=== PATIENT | male | born 1970 | race Caucasian/White ===

== ENCOUNTER 2022-09-24 12:55 | Inpatient (IN) | payer MEDICARE, SELFPAY ==
[2022-09-24] MEDS ORDERED: Morphine 4 MG/ML VIAL ONE (13:36)
[2022-09-24] MEDS ORDERED: Cefepime 2 GM VIAL ONE ×2 (13:36→13:37)
[2022-09-24] MEDS ORDERED: Lidocaine 1% PF 5 ML VIAL ONE (13:39)
[2022-09-24] MEDS ORDERED: Vancomycin 1 GM/200 ML (FROZEN) BAG ONE (13:40)
[2022-09-24 13:44] LABS: #Eosinphils 0.2 thou/uL (0.0-0.7); #Lymphocytes 1.4 thou/uL (1.20-3.40); #Neutrophils 9.3 thou/uL (1.40-6.50); %Eosinophils 1.9 % (0.0-10.0); %Lymphocytes 11.7 % (21.0-51.0); %Monocytes 8.3 % (0.0-10.0); Hemoglobin 15.3 g/dL (14.0-18.0); Mean Corpuscular HGB CONC 33.5 g/dL (32.0-36.0); Mean Corpuscular Hemoglobin 33.7 pg (27.0-31.0); Mean Platelet Volume 6.3 fL (7.4-10.4); Platelet Count 260 10x3/uL (130-400); RBC Distribution Width 11.8 % (11.5-14.5); Red Blood Cell (RBC) Count 4.54 mill/uL (4.70-6.10); White Blood Cell (WBC) Count 11.9 10x3/uL (4.8-10.8)
[2022-09-24 14:07] LABS: ALT (SGPT) 16 U/L (8-55); AST (SGOT) 16 U/L (5-34); Albumin 3.6 g/dL (3.5-5.0); Alkaline Phosphatase 76 U/L (40-110); Anion Gap 10 mmol/L (10-20); BUN (Urea Nitrogen) 12 mg/dL (8.4-25.7); Bilirubin, Total 1.1 mg/dL (0.2-1.2); CRP (Inflammatory) 6.53 mg/dL (= or < 0.5); Calc. Creatinine Clearance 0 mL/min (70-130); Calcium 8.3 mg/dL (7.8-10.44); Carbon Dioxide 21 mmol/L (22-29); Chloride 109 mmol/L (98-107); Estimated GFR 112; Globulin 3.3 g/dL (2.4-3.5); Glucose 88 mg/dL (70-105); Potassium 3.8 mmol/L (3.5-5.1); Protein, Total 6.9 g/dL (6.0-8.3); Sodium 136 mmol/L (136-145)
[2022-09-24] MEDS ORDERED: LORazepam 2 MG/ML SYR.(CARPUJECT) ONE (14:07)
[2022-09-24 16:34] LABS: SARS-CoV-2 NAA Rapid Test Not Detected (NotDetected)
[2022-09-24] MEDS ORDERED: Ondansetron ODT 4 MG TAB PO PRN (16:54)
[2022-09-24] MEDS ORDERED: Morphine 4 MG/ML VIAL SLOW IVP PRN (16:54)
[2022-09-24] MEDS ORDERED: hydrALAZINE 20 MG/ML VIAL SLOW IVP PRN (16:54)
[2022-09-24] MEDS ORDERED: Ondansetron PF 4 MG/2 ML Vial IVP PRN (16:54)
[2022-09-24] MEDS ORDERED: Piperacillin/Tazobactam 3.375 GM in Sodium Chloride 0.9% 100 ML IVPB SCH (17:30)
[2022-09-24] MEDS ORDERED: Piperacillin/Tazobactam 4.5 GM in Sodium Chloride 0.9% 100 ML IVPB SCH (18:00)
[2022-09-24] MEDS ORDERED: Piperacillin/Tazobactam 3.375 GM VIAL ONE ×2 (18:15→23:23)
[2022-09-24] MEDS: Sodium Chloride 0.9% 1,000 ML IV SCH (18:20)
[2022-09-24 20:27] VITALS: BMI 22.1
[2022-09-24] MEDS ORDERED: Famotidine/PF 20 mg/2ml Vial ONE (21:27)
[2022-09-24] MEDS: Famotidine/PF 20 mg/2ml Vial SLOW IVP SCH (21:31)
[2022-09-24] MEDS: Piperacillin/Tazobactam 3.375 GM in Sodium Chloride 0.9% 100 ML IVPB SCH (23:30)
[2022-09-24] MEDS: VANCOMYCIN 1.25 GM/250 ML BAG 1.25 GM in Premix Bag 1 BAG IVPB SCH (23:57)
[2022-09-25] MEDS: VANCOMYCIN 1.25 GM/250 ML BAG 1.25 GM in Premix Bag 1 BAG IVPB SCH ×3 (05:19→17:51)
[2022-09-25] MEDS: Piperacillin/Tazobactam 3.375 GM in Sodium Chloride 0.9% 100 ML IVPB SCH ×3 (05:19→22:33)
[2022-09-25 06:14] LABS: #Eosinphils 0.3 thou/uL (0.0-0.7); #Lymphocytes 1.1 thou/uL (1.20-3.40); #Monocytes 0.8 thou/uL (0.11-0.59); #Neutrophils 8.4 thou/uL (1.40-6.50); %Basophils 0.1 % (0.0-1.0); %Eosinophils 3.2 % (0.0-10.0); %Lymphocytes 10.1 % (21.0-51.0); %Monocytes 7.8 % (0.0-10.0); %Neutrophils 78.8 % (42.0-75.0); Hemoglobin 14.9 g/dL (14.0-18.0); Mean Corpuscular HGB CONC 33.3 g/dL (32.0-36.0); Mean Corpuscular Hemoglobin 34.1 pg (27.0-31.0); Mean Platelet Volume 6.3 fL (7.4-10.4); Platelet Count 234 10x3/uL (130-400); RBC Distribution Width 11.8 % (11.5-14.5); Red Blood Cell (RBC) Count 4.38 mill/uL (4.70-6.10); White Blood Cell (WBC) Count 10.7 10x3/uL (4.8-10.8)
[2022-09-25] MEDS ORDERED: Neomycin-Polymyxin 1 ML AMP ONE (06:18)
[2022-09-25] MEDS ORDERED: Bacitracin Zinc Ointment 30 gm TUBE ONE (06:18)
[2022-09-25] MEDS ORDERED: Bupivacaine PF 0.5% 30 ML VIAL ONE (06:18)
[2022-09-25 06:40] LABS: ALT (SGPT) 11 U/L (8-55); AST (SGOT) 14 U/L (5-34); Albumin 3.4 g/dL (3.5-5.0); Alkaline Phosphatase 80 U/L (40-110); Anion Gap 11 mmol/L (10-20); BUN (Urea Nitrogen) 8 mg/dL (8.4-25.7); Bilirubin, Total 1.5 mg/dL (0.2-1.2); Calc. Creatinine Clearance 117 mL/min (70-130); Calcium 8.2 mg/dL (7.8-10.44); Carbon Dioxide 21 mmol/L (22-29); Chloride 108 mmol/L (98-107); Estimated GFR 109; Glucose 74 mg/dL (70-105); Potassium 3.8 mmol/L (3.5-5.1); Protein, Total 6.4 g/dL (6.0-8.3); Sodium 136 mmol/L (136-145)
[2022-09-25] MEDS ORDERED: Dexamethasone 20 MG/5 ML VIAL ONE (06:54)
[2022-09-25] MEDS ORDERED: Ondansetron PF 4 MG/2 ML Vial ONE (06:54)
[2022-09-25] MEDS ORDERED: Lidocaine 1% PF 5 ML VIAL ONE (06:54)
[2022-09-25] MEDS ORDERED: PROPOFOL 200 MG/20 ML VIAL ONE (06:54)
[2022-09-25] MEDS ORDERED: Ketorolac Tromethamine 30 MG/ML VIAL ONE (06:54)
[2022-09-25] MEDS ORDERED: Midazolam HCl 2 mg/2 ml Vial ONE (07:01)
[2022-09-25] MEDS ORDERED: Fentanyl 100 MCG/2 ML VIAL ONE (08:28)
[2022-09-25] MEDS ORDERED: Non-Formulary Medication 1 EACH PO PRN (08:37)
[2022-09-25] MEDS ORDERED: Ondansetron HCl/PF 4 MG/2 ML Vial IVP PRN (08:45)
[2022-09-25] MEDS ORDERED: Promethazine HCl 25 MG/ML VIAL IM/IV PRN (08:45)
[2022-09-25] MEDS: Famotidine/PF 20 mg/2ml Vial SLOW IVP SCH ×2 (11:06→19:47)
[2022-09-25 16:03] LABS: Vancomycin, Trough 7.9 ug/mL
[2022-09-25] MEDS: Sodium Chloride 0.9% 1,000 ML IV SCH ×2 (17:56)
[2022-09-26] MEDS: Acetaminophen 500 MG TAB PO PRN ×2 (00:33→05:58)
[2022-09-26] MEDS: VANCOMYCIN 1.25 GM/250 ML BAG 1.25 GM in Premix Bag 1 BAG IVPB SCH ×3 (00:35→17:53)
[2022-09-26] MEDS: Piperacillin/Tazobactam 3.375 GM in Sodium Chloride 0.9% 100 ML IVPB SCH ×2 (05:51→14:56)
[2022-09-26 06:39] LABS: #Eosinphils 0.1 thou/uL (0.0-0.7); #Lymphocytes 1.4 thou/uL (1.20-3.40); #Monocytes 0.8 thou/uL (0.11-0.59); #Neutrophils 9.1 thou/uL (1.40-6.50); %Basophils 0.1 % (0.0-1.0); %Eosinophils 0.7 % (0.0-10.0); %Lymphocytes 12.2 % (21.0-51.0); %Monocytes 6.9 % (0.0-10.0); Hemoglobin 14.2 g/dL (14.0-18.0); Mean Corpuscular Hemoglobin 35.5 pg (27.0-31.0); Mean Platelet Volume 6.4 fL (7.4-10.4); Platelet Count 252 10x3/uL (130-400); RBC Distribution Width 11.6 % (11.5-14.5); White Blood Cell (WBC) Count 11.3 10x3/uL (4.8-10.8)
[2022-09-26 07:06] LABS: ALT (SGPT) 10 U/L (8-55); AST (SGOT) 12 U/L (5-34); Albumin 3.3 g/dL (3.5-5.0); Alkaline Phosphatase 80 U/L (40-110); Anion Gap 9 mmol/L (10-20); BUN (Urea Nitrogen) 8 mg/dL (8.4-25.7); Bilirubin, Total 0.5 mg/dL (0.2-1.2); Calc. Creatinine Clearance 116 mL/min (70-130); Carbon Dioxide 23 mmol/L (22-29); Chloride 110 mmol/L (98-107); Estimated GFR 108; Globulin 2.9 g/dL (2.4-3.5); Glucose 98 mg/dL (70-105); Magnesium 2.1 mg/dL (1.6-2.6); Phosphorus 2.5 mg/dL (2.3-4.7); Potassium 3.6 mmol/L (3.5-5.1); Protein, Total 6.2 g/dL (6.0-8.3); Sodium 138 mmol/L (136-145)
[2022-09-26] MEDS ORDERED: Meperidine HCl/PF 25 MG/ML VIAL IM PRN (08:13)
[2022-09-26] MEDS ORDERED: Promethazine HCl 25 MG/ML VIAL IM PRN (08:14)
[2022-09-26] MEDS: Famotidine/PF 20 mg/2ml Vial SLOW IVP SCH ×2 (08:49→20:04)
[2022-09-26] MEDS: Sodium Chloride 0.9% 1,000 ML IV SCH (08:49)
[2022-09-26] MEDS: Morphine 4 MG/ML VIAL SLOW IVP PRN ×2 (11:18→20:04)
[2022-09-26 17:21] LABS: Vancomycin, Trough 14.7 ug/mL
[2022-09-27] MEDS: Sodium Chloride 0.9% 1,000 ML IV SCH ×2 (00:57→12:20)
[2022-09-27] MEDS: VANCOMYCIN 1.25 GM/250 ML BAG 1.25 GM in Premix Bag 1 BAG IVPB SCH ×2 (00:58→08:43)
[2022-09-27 06:03] LABS: #Eosinphils 0.3 thou/uL (0.0-0.7); #Monocytes 0.5 thou/uL (0.11-0.59); #Neutrophils 4.4 thou/uL (1.40-6.50); %Basophils 0.4 % (0.0-1.0); %Eosinophils 3.9 % (0.0-10.0); %Lymphocytes 27.7 % (21.0-51.0); %Monocytes 7.4 % (0.0-10.0); %Neutrophils 60.5 % (42.0-75.0); Hemoglobin 14.3 g/dL (14.0-18.0); Mean Corpuscular Hemoglobin 34.3 pg (27.0-31.0); Mean Platelet Volume 6.3 fL (7.4-10.4); Platelet Count 252 10x3/uL (130-400); RBC Distribution Width 11.7 % (11.5-14.5); Red Blood Cell (RBC) Count 4.18 mill/uL (4.70-6.10); White Blood Cell (WBC) Count 7.3 10x3/uL (4.8-10.8)
[2022-09-27 06:24] LABS: Anion Gap 11 mmol/L (10-20); BUN (Urea Nitrogen) 9 mg/dL (8.4-25.7); Calc. Creatinine Clearance 116 mL/min (70-130); Calcium 8.1 mg/dL (7.8-10.44); Carbon Dioxide 24 mmol/L (22-29); Chloride 108 mmol/L (98-107); Estimated GFR 108; Glucose 83 mg/dL (70-105); Potassium 3.8 mmol/L (3.5-5.1); Sodium 139 mmol/L (136-145)
[2022-09-27] MEDS: Famotidine/PF 20 mg/2ml Vial SLOW IVP SCH ×2 (08:43→20:16)
[2022-09-27] MEDS: HYDROcodone/Acetaminophen 5/325 mg Tablet PO PRN (16:33)
[2022-09-27] MEDS: Cephalexin 250 MG CAP PO SCH ×2 (16:33→20:16)
[2022-09-27] MEDS: Morphine 4 MG/ML VIAL SLOW IVP PRN (20:17)
[2022-09-27] MEDS: Acetaminophen 500 MG TAB PO PRN (21:28)
[2022-09-28] MEDS: Sodium Chloride 0.9% 1,000 ML IV SCH ×2 (04:22→17:00)
[2022-09-28] MEDS: Cephalexin 250 MG CAP PO SCH (08:16)
[2022-09-28] MEDS ORDERED: FLU VACC QS2022-23(6MOS UP)/PF 60 MCG/0.5 ML SYRINGE IM ONE (09:00)
[2022-09-28] MEDS: Famotidine/PF 20 mg/2ml Vial SLOW IVP SCH ×2 (12:27→21:06)
[2022-09-28] MEDS: HYDROcodone/Acetaminophen 5/325 mg Tablet PO PRN ×2 (12:27→21:06)
[2022-09-28] MEDS: CEFAZOLIN 1 GM in Sodium Chloride 0.9% 100 ML IVPB SCH ×2 (16:21→21:05)
[2022-09-29] MEDS: CEFAZOLIN 1 GM in Sodium Chloride 0.9% 100 ML IVPB SCH ×3 (05:22→21:26)
[2022-09-29] MEDS: Sodium Chloride 0.9% 1,000 ML IV SCH ×2 (05:22→21:31)
[2022-09-29 08:04] LABS: #Basophils 0.1 thou/uL (0.0-0.2); #Eosinphils 0.4 thou/uL (0.0-0.7); #Lymphocytes 1.7 thou/uL (1.20-3.40); #Monocytes 0.6 thou/uL (0.11-0.59); %Basophils 0.7 % (0.0-1.0); %Eosinophils 4.1 % (0.0-10.0); %Lymphocytes 19.1 % (21.0-51.0); %Monocytes 7.4 % (0.0-10.0); %Neutrophils 68.7 % (42.0-75.0); Hemoglobin 16.3 g/dL (14.0-18.0); Mean Corpuscular HGB CONC 34.2 g/dL (32.0-36.0); Mean Corpuscular Hemoglobin 34.3 pg (27.0-31.0); Mean Platelet Volume 6.1 fL (7.4-10.4); Platelet Count 283 10x3/uL (130-400); RBC Distribution Width 11.6 % (11.5-14.5); Red Blood Cell (RBC) Count 4.75 mill/uL (4.70-6.10); White Blood Cell (WBC) Count 8.7 10x3/uL (4.8-10.8)
[2022-09-29 08:14] LABS: Anion Gap 12 mmol/L (10-20); BUN (Urea Nitrogen) 13 mg/dL (8.4-25.7); Calc. Creatinine Clearance 121 mL/min (70-130); Calcium 8.6 mg/dL (7.8-10.44); Carbon Dioxide 22 mmol/L (22-29); Chloride 107 mmol/L (98-107); Estimated GFR 109; Glucose 84 mg/dL (70-105); Sodium 137 mmol/L (136-145)
[2022-09-29] MEDS: Famotidine/PF 20 mg/2ml Vial SLOW IVP SCH ×2 (09:20→21:26)
[2022-09-29] MEDS: Morphine 4 MG/ML VIAL SLOW IVP PRN (11:03)
[2022-09-29] MEDS: HYDROcodone/Acetaminophen 5/325 mg Tablet PO PRN ×2 (17:47→21:57)
[2022-09-30] MEDS: CEFAZOLIN 1 GM in Sodium Chloride 0.9% 100 ML IVPB SCH ×3 (05:17→21:12)
[2022-09-30] MEDS: Sodium Chloride 0.9% 1,000 ML IV SCH ×2 (05:23→21:06)
[2022-09-30 06:34] LABS: #Eosinphils 0.5 thou/uL (0.0-0.7); #Lymphocytes 2.1 thou/uL (1.20-3.40); #Monocytes 0.7 thou/uL (0.11-0.59); #Neutrophils 5.4 thou/uL (1.40-6.50); %Basophils 0.3 % (0.0-1.0); %Eosinophils 5.2 % (0.0-10.0); %Lymphocytes 24.4 % (21.0-51.0); %Monocytes 8.4 % (0.0-10.0); %Neutrophils 61.7 % (42.0-75.0); Hemoglobin 15.9 g/dL (14.0-18.0); Mean Corpuscular HGB CONC 34.7 g/dL (32.0-36.0); Mean Corpuscular Hemoglobin 34.5 pg (27.0-31.0); Mean Corpuscular Volume 99.5 fl (78.0-98.0); Mean Platelet Volume 6.1 fL (7.4-10.4); Platelet Count 284 10x3/uL (130-400); RBC Distribution Width 11.7 % (11.5-14.5); Red Blood Cell (RBC) Count 4.62 mill/uL (4.70-6.10); White Blood Cell (WBC) Count 8.8 10x3/uL (4.8-10.8)
[2022-09-30 06:53] LABS: Anion Gap 10 mmol/L (10-20); BUN (Urea Nitrogen) 12 mg/dL (8.4-25.7); Calc. Creatinine Clearance 116 mL/min (70-130); Calcium 8.6 mg/dL (7.8-10.44); Carbon Dioxide 24 mmol/L (22-29); Chloride 106 mmol/L (98-107); Estimated GFR 108; Glucose 80 mg/dL (70-105); Phosphorus 3.3 mg/dL (2.3-4.7); Potassium 3.8 mmol/L (3.5-5.1); Sodium 136 mmol/L (136-145)
[2022-09-30] MEDS: Famotidine/PF 20 mg/2ml Vial SLOW IVP SCH ×2 (08:54→21:08)
[2022-09-30] MEDS: Acetaminophen 500 MG TAB PO PRN (21:11)
[2022-09-30] MEDS: HYDROcodone/Acetaminophen 5/325 mg Tablet PO PRN (22:02)
[2022-10-01] MEDS: Melatonin 3 MG TAB PO PRN (02:30)
[2022-10-01] MEDS: CEFAZOLIN 1 GM in Sodium Chloride 0.9% 100 ML IVPB SCH ×3 (05:21→22:05)
[2022-10-01] MEDS: Famotidine/PF 20 mg/2ml Vial SLOW IVP SCH ×2 (08:47→19:54)
[2022-10-01] MEDS: Sodium Chloride 0.9% 1,000 ML IV SCH (08:47)
[2022-10-01] MEDS ORDERED: Bacitracin Zinc Ointment 30 gm TUBE ONE (16:09)
[2022-10-01] MEDS ORDERED: Bupivacaine PF 0.5% 30 ML VIAL ONE (16:09)
[2022-10-01] MEDS ORDERED: Neomycin-Polymyxin 1 ML AMP ONE (16:09)
[2022-10-01] MEDS ORDERED: fentaNYL PF 100 MCG/2 ML SYRINGE ONE (16:13)
[2022-10-01] MEDS ORDERED: Dexamethasone 20 MG/5 ML VIAL ONE (16:30)
[2022-10-01] MEDS ORDERED: Lidocaine 1% PF 5 ML VIAL ONE (16:30)
[2022-10-01] MEDS ORDERED: Ondansetron PF 4 MG/2 ML Vial ONE (16:30)
[2022-10-01] MEDS ORDERED: Ketorolac Tromethamine 30 MG/ML VIAL ONE (16:30)
[2022-10-01] MEDS ORDERED: PROPOFOL 200 MG/20 ML VIAL ONE (16:30)
[2022-10-01] MEDS ORDERED: Ondansetron HCl/PF 4 MG/2 ML Vial IVP PRN (17:01)
[2022-10-01] MEDS ORDERED: Morphine Sulfate 2 MG/ML SYRINGE SLOW IVP PRN (17:01)
[2022-10-01] MEDS ORDERED: Promethazine HCl 25 MG/ML VIAL IM PRN (17:01)
[2022-10-01] MEDS ORDERED: HYDROmorphone 2 MG/ML VIAL SLOW IVP PRN (17:01)
[2022-10-01] MEDS ORDERED: PACU-Morphine 4MG/ML VIAL SLOW IVP PRN (17:01)
[2022-10-01] MEDS ORDERED: Fentanyl 100 MCG/2 ML VIAL ONE (17:26)
[2022-10-01] MEDS: HYDROcodone/Acetaminophen 5/325 mg Tablet PO PRN (19:53)
[2022-10-02] MEDS: Sodium Chloride 0.9% 1,000 ML IV SCH ×2 (00:06→10:14)
[2022-10-02] MEDS: Melatonin 3 MG TAB PO PRN (00:19)
[2022-10-02] MEDS: CEFAZOLIN 1 GM in Sodium Chloride 0.9% 100 ML IVPB SCH ×2 (05:14→13:22)
[2022-10-02] MEDS: Famotidine/PF 20 mg/2ml Vial SLOW IVP SCH (08:11)
[2022-10-02 16:51] VITALS: BP 101/60; TEMP 97.7
== END 2022-10-02 18:00 | disposition home or self-care (01) | DRG 981 ==
LOC: ERS 12:55 → ERHOLD 14:30 → OBSVTOIN 16:54 → SURG B 23:36
PROVIDERS: ADMIT Family Medicine; ATTEND Hospitalist
PROC: 0L980ZZ Drainage of Left Hand Tendon, Open Approach (ICD-10-PCS; 2022-09-25)
PROC: 0LD80ZZ Extraction of Left Hand Tendon, Open Approach (ICD-10-PCS; principal; 2022-10-02)
DX: L03.012 Cellulitis of left finger (principal); G93.41 Metabolic encephalopathy; L02.512 Cutaneous abscess of left hand; E78.00 Pure hypercholesterolemia, unspecified; F41.9 Anxiety disorder, unspecified; F31.9 Bipolar disorder, unspecified; F17.210 Nicotine dependence, cigarettes, uncomplicated; F15.10 Other stimulant abuse, uncomplicated; I10 Essential (primary) hypertension; Z88.5 Allergy status to narcotic agent; B95.61 Methicillin susceptible Staphylococcus aureus infection as the cause of diseases classified elsewhere
CPT/HCPCS: 36415; 80048; 80053; 80202; 83605; 83735; 84100; 85025; 86140; 87040; 87070; 87077; 87186; 87205; 87811; 90471; 90686; 96374; 96375; 97139; G0008; G0378; J0690; J0692; J1100; J1885; J1956; J2060; J2250; J2270; J2405; J2543; J2704; J3010; J3370; J3370-JW; J3490; J7050; S0020; S0028; U0002

== ENCOUNTER 2023-03-14 22:22 | Emergency (ER) | payer SELFPAY ==
[2023-03-14 23:54] LABS: Acetaminophen Less than 10 mcg/mL (10.0-30.0); Alcohol Less than 10.0 mg/dL (Less than 10); Salicylate Less than 8.0 mg/dL (15.0-30.0)
[2023-03-15] LABS: ALT (SGPT) 17 U/L (8-55); AST (SGOT) 16 U/L (5-34); Albumin 3.9 g/dL (3.5-5.0); Alkaline Phosphatase 111 U/L (40-110); Anion Gap 14 mmol/L (10-20); BUN (Urea Nitrogen) 19 mg/dL (8.4-25.7); Bilirubin, Total 0.5 mg/dL (0.2-1.2); CK (CPK) 64 U/L (30-200); Calc. Creatinine Clearance 0 mL/min (70-130); Calcium 9.6 mg/dL (7.8-10.44); Carbon Dioxide 22 mmol/L (22-29); Chloride 106 mmol/L (98-107); Estimated GFR 95; Globulin 3.1 g/dL (2.4-3.5); Glucose 69 mg/dL (70-105); Potassium 3.7 mmol/L (3.5-5.1); Sodium 138 mmol/L (136-145)
[2023-03-15 00:03] LABS: #Monocytes 0.9 thou/uL (0.11-0.59); #Neutrophils 4.9 thou/uL (1.40-6.50); %Basophils 0.5 % (0.0-1.0); %Eosinophils 12.7 % (0.0-10.0); %Lymphocytes 13.5 % (21.0-51.0); %Neutrophils 61.9 % (42.0-75.0); Hemoglobin 16.7 g/dL (14.0-18.0); Mean Corpuscular HGB CONC 34.2 g/dL (32.0-36.0); Mean Corpuscular Hemoglobin 33.1 pg (27.0-31.0); Mean Corpuscular Volume 96.6 fl (78.0-98.0); Mean Platelet Volume 9.1 fL (7.4-10.4); Platelet Count 260 10x3/uL (130-400); RBC Distribution Width 12.9 % (11.5-14.5); Red Blood Cell (RBC) Count 5.05 mill/uL (4.70-6.10); White Blood Cell (WBC) Count 7.9 10x3/uL (4.8-10.8)
[2023-03-15 01:14] LABS: Amphetamine Detected (NotDetected); Barbiturates Screen Not Detected (NotDetected); Benzodiazepine Screen Not Detected (NotDetected); Cocaine Metabolite Screen Not Detected (NotDetected); Methadone Not Detected (NotDetected); Methamphetamine Detected (NotDetected); Opiate Screen Not Detected (NotDetected); Oxycodone Screen Not Detected (NotDetected); Phencyclidine (PCP) Not Detected (NotDetected); THC/Cannabinoid Screen Detected (NotDetected); Tricyclic Screen Not Detected (NotDetected)
[2023-03-15] MEDS ORDERED: Mag-Al 1200 mg/1200 mg/30 ML UDCUP ONE (10:05)
[2023-03-16] MEDS ORDERED: Donnatal Elixir 16.2 MG/5 ML UDCUP PO SCH (08:45)
== END 2023-03-17 21:36 | disposition home or self-care (01) ==
LOC: ERS 22:22
DX: R45.851 Suicidal ideations (principal); E78.5 Hyperlipidemia, unspecified
CPT/HCPCS: 36415; 80053; 80306; 80307; 82550; 84443; 85025; 99285

== ENCOUNTER 2024-09-23 23:43 | Inpatient (IN) | payer MEDICARE ==
[2024-09-24 00:49] LABS: #Basophils 0.05 10x3/uL (0.0-0.2); %Basophils 0.5 % (0.0-1.0); %Eosinophils 6.4 % (0.0-10.0); %Lymphocytes 18.3 % (21.0-51.0); %Monocytes 7.3 % (0.0-10.0); %Neutrophils 67.2 % (42.0-75.0); Hematocrit 47.8 % (42.0-52.0); Hemoglobin 16.5 g/dL (14.0-18.0); Mean Corpuscular HGB CONC 34.5 g/dL (32.0-36.0); Mean Corpuscular Hemoglobin 32.5 pg (27.0-31.0); Mean Corpuscular Volume 94.1 fL (78.0-98.0); Mean Platelet Volume 8.7 fL (7.4-10.4); Platelet Count 273 10x3/uL (130-400); RBC Distribution Width 12.9 % (11.5-14.5); Red Blood Cell (RBC) Count 5.08 mill/uL (4.70-6.10)
[2024-09-24 01:03] LABS: Calc. Creatinine Clearance 0 mL/min (70-130); Estimated GFR 109
[2024-09-24 01:05] LABS: ALT (SGPT) 15 U/L (8-55); AST (SGOT) 19 U/L (5-34); Acetaminophen Less than 10 mcg/mL (Less than 10); Albumin 3.7 g/dL (3.5-5.0); Alcohol Less than 10.0 mg/dL (Less than 10); Alkaline Phosphatase 117 U/L (40-110); Anion Gap 13 mmol/L (10-20); BUN (Urea Nitrogen) 9 mg/dL (8.4-25.7); Bilirubin, Total 0.4 mg/dL (0.2-1.2); Calcium 9.5 mg/dL (7.8-10.44); Carbon Dioxide 23 mmol/L (22-29); Chloride 106 mmol/L (98-107); Globulin 3.9 g/dL (2.4-3.5); Glucose 69 mg/dL (70-105); Magnesium 1.8 mg/dL (1.6-2.6); Potassium 3.9 mmol/L (3.5-5.1); Protein, Total 7.6 g/dL (6.0-8.3); Salicylate Less than 8.0 mg/dL (Less than 8.0); Sodium 138 mmol/L (136-145)
[2024-09-24 01:09] LABS: Troponin I Less than 0.010 ng/mL (< 0.028)
[2024-09-24 01:12] LABS: INR-International Normal Ratio 0.9; Prothrombin Time 12.5 sec (12.0-14.7)
[2024-09-24 01:17] LABS: Amphetamine Not Detected (NotDetected); Barbiturates Screen Not Detected (NotDetected); Benzodiazepine Screen Not Detected (NotDetected); Cocaine Metabolite Screen Not Detected (NotDetected); Methadone Not Detected (NotDetected); Methamphetamine Not Detected (NotDetected); Opiate Screen Not Detected (NotDetected); Oxycodone Screen Not Detected (NotDetected); Phencyclidine (PCP) Not Detected (NotDetected); THC/Cannabinoid Screen Detected (NotDetected); Tricyclic Screen Not Detected (NotDetected)
[2024-09-24] MEDS ORDERED: Ondansetron ODT 4 MG TAB SL PRN (03:00)
[2024-09-24] MEDS ORDERED: Acetaminophen 325 MG TAB PO PRN ×2 (03:00→07:51)
[2024-09-24] MEDS ORDERED: Ondansetron PF 4 MG/2 ML Vial IVP PRN (03:00)
[2024-09-24 03:35] VITALS: BMI 29.8
[2024-09-24] MEDS: Melatonin 3 MG TAB PO SCH (03:39)
[2024-09-24] MEDS: Venlafaxine HCl 25 MG TAB PO SCH (08:58)
[2024-09-24] MEDS: Benztropine 1 MG TAB PO SCH (08:58)
[2024-09-24] MEDS: Enoxaparin 40 MG (0.4 mL) SYRINGE SC SCH (08:58)
[2024-09-24] MEDS: FLU (Fluarix Triv) TS24-25(6MOS UP)/PF 45 MCG/0.5 ML Syringe IM ONE (09:00)
[2024-09-24] MEDS: risperiDONE 3 MG TAB PO SCH (10:00)
[2024-09-24] MEDS: Ondansetron PF 4 MG/2 ML Vial IVP PRN (11:12)
[2024-09-24] MEDS ORDERED: Iopamidol-370 76% 500 ML MDV (1 ML CHARGE) ONE (14:05)
[2024-09-25] MEDS: Doxepin HCl 25 MG CAP PO PRN (00:28)
[2024-09-25 05:21] LABS: #Basophils 0.04 10x3/uL (0.0-0.2); %Basophils 0.5 % (0.0-1.0); %Eosinophils 10.4 % (0.0-10.0); %Lymphocytes 26.4 % (21.0-51.0); %Monocytes 7.6 % (0.0-10.0); %Neutrophils 54.7 % (42.0-75.0); Hematocrit 43.5 % (42.0-52.0); Hemoglobin 14.9 g/dL (14.0-18.0); Mean Corpuscular HGB CONC 34.3 g/dL (32.0-36.0); Mean Corpuscular Hemoglobin 32.4 pg (27.0-31.0); Mean Corpuscular Volume 94.6 fL (78.0-98.0); Mean Platelet Volume 8.8 fL (7.4-10.4); Platelet Count 231 10x3/uL (130-400); RBC Distribution Width 13.2 % (11.5-14.5)
[2024-09-25 05:42] LABS: Anion Gap 10 mmol/L (10-20); BUN (Urea Nitrogen) 16 mg/dL (8.4-25.7); Calc. Creatinine Clearance 132 mL/min (70-130); Calcium 8.3 mg/dL (7.8-10.44); Carbon Dioxide 23 mmol/L (22-29); Chloride 107 mmol/L (98-107); Estimated GFR 106; Glucose 72 mg/dL (70-105); Potassium 3.7 mmol/L (3.5-5.1); Sodium 136 mmol/L (136-145)
[2024-09-25] MEDS: Simethicone Chewable 80 MG TAB PO PRN (09:28)
[2024-09-25] MEDS: hydrOXYzine 25 MG TAB PO PRN (09:28)
[2024-09-25] MEDS: Metoprolol Succinate XL 25 MG ER.TAB PO SCH (10:13)
[2024-09-25 13:51] VITALS: TEMP 97.4
[2024-09-25 18:36] VITALS: BP 103/68
== END 2024-09-25 19:07 | disposition home or self-care (01) | DRG 310 ==
LOC: ERS 23:43 → OBS 09-24 02:43 → OBSVTOIN 09-25 08:29
PROVIDERS: ADMIT Student in an Organized Health Care Education/Training Program; ATTEND Internal Medicine
DX: I47.10 Supraventricular tachycardia, unspecified (principal); I10 Essential (primary) hypertension; F31.9 Bipolar disorder, unspecified; E78.5 Hyperlipidemia, unspecified; Z88.5 Allergy status to narcotic agent
CPT/HCPCS: 36415; 36416; 71045; 71275; 80048; 80053; 80306; 80307; 83735; 83880; 84443; 84484; 85025; 85610; 85730; 90656; 93005; 93010; 93306; 96372; 96374; G0378; J1650; J2405; Q9967